=== PATIENT | female | born 1985 | race Caucasian/White ===

== ENCOUNTER 2017-06-21 02:01 | Emergency (ER) | payer MEDICAID ==
[~2017-06-21] VITALS: Ht 172.7 cm; Wt 58.8 kg
[~2017-06-21 02:01] MED LIST: NORCO10T PO; ONDA4TAB9 SL; PANT40TA39 PO
[2017-06-21] MEDS ORDERED: azithromycin 250mg tablet PO ONE (02:45)
[2017-06-21] MEDS ORDERED: AZIT-63 PO (02:45)
[2017-06-21 03:07] VITALS: BP 117/69
== END 2017-06-21 03:09 | disposition home or self-care (01) ==
LOC: ER 02:02
DX: J18.1 Lobar pneumonia, unspecified organism (principal); K21.9 Gastro-esophageal reflux disease without esophagitis; G89.29 Other chronic pain; F12.10 Cannabis abuse, uncomplicated; F11.10 Opioid abuse, uncomplicated; Z86.14 Personal history of Methicillin resistant Staphylococcus aureus infection; Z87.442 Personal history of urinary calculi; Z88.8 Allergy status to other drugs, medicaments and biological substances; Z88.2 Allergy status to sulfonamides; Z79.899 Other long term (current) drug therapy
CPT/HCPCS: 71046; 99284

== ENCOUNTER 2019-04-01 16:14 | Emergency (ER) | payer MEDICAID ==
[~2019-04-01] VITALS: Ht 172.7 cm; Wt 59.0 kg
[~2019-04-01 16:14] MED LIST changes: +FLUC150T5 PO
[2019-04-01 17:45] LABS: URINE HCG NEGATIVE (NEG)
[2019-04-01 17:46] LABS: CLARITY,URINE SLIGHTLY CLOUDY (Clear); COLOR,URINE YELLOW (Yellow); GLUCOSE, URINE NEGATIVE (Neg); KETONES,URINE 40 mg/dl (Neg); LEUKOCYTE ESTERASE ,URINE SMALL (Neg); NITRITES, URINE NEGATIVE (Neg); OCCULT BLOOD,URINE MODERATE (Neg); PROTEIN,URINE 30 mg/dl (Neg); UA COLLECTION TYPE CLN CATCH MIDSTREAM
[2019-04-01 17:54] LABS: MUCUS STRANDS MODERATE /LPF (Neg); SQUAMOUS EPITHELIAL CELL,UR MODERATE /LPF (FEW)
[2019-04-01 17:55] LABS: BACTERIA,URINE 4+ /HPF (Neg); WBC,URINE 30-50 /HPF (0-4)
[2019-04-01 18:02] LABS: URINE AMPHETAMINE SCREEN POSITIVE (Neg); URINE BARBITUATE SCREEN NEGATIVE (Neg); URINE BENZODIAZEPINES SCREEN NEGATIVE (Neg); URINE CANNABINOID SCREEN NEGATIVE (Neg); URINE COCAINE SCREEN NEGATIVE (Neg); URINE METHADONE SCREEN NEGATIVE (Neg); URINE OPIATE SCREEN POSITIVE (Neg); URINE PHENCYCLIDINE SCREEN NEGATIVE (Neg)
[2019-04-01] MEDS ORDERED: normal saline 1000ML IV soln IVB ONE ×2 (18:15)
[2019-04-01] MEDS ORDERED: CefTRIAXone 2gm/D5W 50ml 50 ML IV ONE (18:15)
[2019-04-01] MEDS ORDERED: ondansetron/PF 4mg/2ml inj IV ONE (18:30)
[2019-04-01] MEDS ORDERED: ketorolac tromethamine 15mg/ml inj. IV ONE (18:30)
[2019-04-01 19:01] LABS: BASOPHILS % (AUTO) 0.2 % (0-1); EOSINOPHILS % (AUTO) 0 % (0-6); HEMATOCRIT 36.2 % (35.0-45.0); HEMOGLOBIN 12.1 g/dl (12.0-16.0); LYMPHOCYTES # (AUTO) 1.1 X10'3 (1.1-4.8); LYMPHOCYTES % (AUTO) 5.8 % (21-51); MEAN CORPUSCULAR HEMOGLOBIN 28.1 PG (27.0-31.0); MEAN CORPUSCULAR HGB CONC 33.4 g/dL (33.0-36.5); MEAN CORPUSCULAR VOLUME 84.2 FL (78-98); MEAN PLATELET VOLUME 6.9 FL (7.4-10.4); MONOCYTES # (AUTO) 1.7 X10'3 (0-0.9); MONOCYTES % (AUTO) 8.8 % (2-12); NEUTROPHILS % (AUTO) 85.2 % (42-75); PLATELET COUNT 235 X10'3 (140-440); RED CELL DISTRIBUTION WIDTH 12.7 % (11.5-14.5); WHITE BLOOD COUNT 18.8 X10'3 (4.5-11.0)
[2019-04-01 19:07] LABS: ALANINE AMINOTRANSFERASE 21 U/L (12-78); ALBUMIN 2.8 G/DL (3.4-5.0); ALBUMIN/GLOBULIN RATIO 0.6 (1.1-1.5); ALKALINE PHOSPHATASE 76 IU/L (46-116); ANION GAP 7 (8-16); ASPARTATE AMINO TRANSFERASE 15 U/L (10-37); BILIRUBIN,TOTAL 0.5 MG/DL (0.1-1.0); BLOOD UREA NITROGEN 14 MG/DL (7-18); BUN/CREATININE RATIO 21.2 (6.6-38.0); CALCIUM 8.4 MG/DL (8.5-10.1); CHLORIDE 99 MMOL/L (99-107); CREATININE 0.66 MG/DL (0.40-0.90); GLUCOSE 119 MG/DL (70-104); POTASSIUM 4.2 MMOL/L (3.5-5.1); SODIUM 134 MMOL/L (135-145); TOTAL CARBON DIOXIDE 27.7 MMOL/L (24-32); TOTAL PROTEIN 7.3 G/DL (6.4-8.2); eGFR > 90 ML/MIN
[2019-04-01] MEDS ORDERED: ONDA4TAB6 PO (19:13)
[2019-04-01] MEDS ORDERED: CEPH250T PO (19:13)
[2019-04-01 19:37] VITALS: BP 100/66
== END 2019-04-01 19:38 | disposition home or self-care (01) ==
LOC: ER 16:15
DX: N39.0 Urinary tract infection, site not specified (principal); N12 Tubulo-interstitial nephritis, not specified as acute or chronic; F15.10 Other stimulant abuse, uncomplicated; K21.9 Gastro-esophageal reflux disease without esophagitis; G89.29 Other chronic pain; F41.9 Anxiety disorder, unspecified; F32.9 Major depressive disorder, single episode, unspecified; F17.200 Nicotine dependence, unspecified, uncomplicated; F12.90 Cannabis use, unspecified, uncomplicated; F11.90 Opioid use, unspecified, uncomplicated; Z86.69 Personal history of other diseases of the nervous system and sense organs; Z88.2 Allergy status to sulfonamides; Z88.8 Allergy status to other drugs, medicaments and biological substances; Z79.899 Other long term (current) drug therapy; Z87.442 Personal history of urinary calculi; Z90.89 Acquired absence of other organs; Z98.890 Other specified postprocedural states
CPT/HCPCS: 36415; 80053; 80305; 81001; 81025; 85025; 87077; 87088; 87186; 96365; 96375; 99283; J0696; J1885; J2405; J7030; 96374

== ENCOUNTER 2020-12-26 05:44 | Emergency (ER) | payer MEDICAID ==
[~2020-12-26] VITALS: Ht 172.7 cm; Wt 61.4 kg
[~2020-12-26 05:44] MED LIST changes: +ONDA4TAB6 PO
[2020-12-26 06:03] VITALS: BP 130/92
== END 2020-12-26 09:26 | disposition left against medical advice (07) ==
LOC: ER 05:44
DX: J00 Acute nasopharyngitis [common cold] (principal); R05 Cough; R09.89 Other specified symptoms and signs involving the circulatory and respiratory systems; Z53.21 Procedure and treatment not carried out due to patient leaving prior to being seen by health care provider

== ENCOUNTER 2021-12-02 15:21 | Emergency (ER) | payer MEDICAID ==
[~2021-12-02] VITALS: Ht 172.7 cm; Wt 61.4 kg
[~2021-12-02 15:21] MED LIST changes: +FLUC150T46 PO; -FLUC150T5 PO
[2021-12-02 15:29] VITALS: BP 145/100
== END 2021-12-02 16:37 | disposition home or self-care (01) ==
LOC: ER 15:22
DX: Z00.00 Encounter for general adult medical examination without abnormal findings (principal); F15.10 Other stimulant abuse, uncomplicated; K21.9 Gastro-esophageal reflux disease without esophagitis; G89.29 Other chronic pain; F12.90 Cannabis use, unspecified, uncomplicated; Z88.1 Allergy status to other antibiotic agents; Z88.2 Allergy status to sulfonamides; Z88.8 Allergy status to other drugs, medicaments and biological substances
CPT/HCPCS: 99283

== ENCOUNTER 2022-11-28 05:34 | Emergency (ER) | payer MEDICAID ==
[~2022-11-28] VITALS: Ht 172.7 cm; Wt 77.6 kg
[2022-11-28 06:13] VITALS: BP 120/78; PULSE 84; RESP 16; TEMP 99; O2SAT 100
== END 2022-11-28 07:38 | disposition left against medical advice (07) ==
LOC: ER 05:34
DX: S01.412A Laceration without foreign body of left cheek and temporomandibular area, initial encounter (principal); Z53.21 Procedure and treatment not carried out due to patient leaving prior to being seen by health care provider; W22.8XXA Striking against or struck by other objects, initial encounter; Y93.89 Activity, other specified; Y92.89 Other specified places as the place of occurrence of the external cause; Y99.8 Other external cause status
CPT/HCPCS: 99281

== ENCOUNTER 2024-01-28 16:56 | Emergency (ER) | payer MEDICAID ==
[~2024-01-28] VITALS: Ht 170.2 cm; Wt 61.0 kg
[2024-01-28 17:11] VITALS: BP 115/71; PULSE 89; RESP 16; TEMP 97.5; O2SAT 100
[2024-01-28] MEDS: amox tr/potassium clavulanate 875/125mg TAB PO STA (19:31)
[2024-01-28] MEDS ORDERED: NEOM10SO7 RIGHT EAR (19:36)
[2024-01-28] MEDS ORDERED: ACET-1025 PO (19:36)
[2024-01-28] MEDS ORDERED: IBUP-1986 PO (19:36)
[2024-01-28] MEDS ORDERED: ibuprofen tablet 400 MG TABLET PO STA (19:37)
[2024-01-28] MEDS ORDERED: acetaminophen 325mg tablet PO STA (19:37)
[2024-01-30] MEDS ORDERED: NEOM10SO7 RIGHT EAR (20:41)
[2024-01-30] MEDS ORDERED: ACET-1025 PO (20:41)
[2024-01-30] MEDS ORDERED: IBUP-1986 PO (20:41)
== END 2024-01-28 19:52 | disposition home or self-care (01) ==
LOC: ER 16:56
DX: H66.41 Suppurative otitis media, unspecified, right ear (principal); H60.8X1 Other otitis externa, right ear; K21.9 Gastro-esophageal reflux disease without esophagitis; F41.9 Anxiety disorder, unspecified; F32.A Depression, unspecified; G89.29 Other chronic pain; F12.90 Cannabis use, unspecified, uncomplicated; F15.90 Other stimulant use, unspecified, uncomplicated; Z88.2 Allergy status to sulfonamides; Z88.8 Allergy status to other drugs, medicaments and biological substances; Z79.899 Other long term (current) drug therapy; Z87.442 Personal history of urinary calculi; Z98.890 Other specified postprocedural states
CPT/HCPCS: 99283